=== PATIENT | female | born 1965 | race Caucasian/White ===

== ENCOUNTER 2018-09-07 19:54 | Emergency (ER) | payer BC ==
[~2018-09-07] VITALS: Ht 167.6 cm; Wt 77.1 kg
[2018-09-07 20:06] VITALS: BP_SYST 125
[2018-09-07 21:15] VITALS: BP_SYST 122
[2018-09-07 21:53] LABS: BILIRUBIN,URINE NEGATIVE (NEGATIVE); BLOOD, URINE NEGATIVE (NEGATIVE); CLARITY/URINE CLEAR (CLEAR); COLOR,URINE YELLOW (YELLOW); GLUCOSE,URINE NEGATIVE (NEGATIVE); KETONES,URINE NEGATIVE (NEGATIVE); LEUKOCYTE ESTERASE ,URINE TRACE (NEGATIVE); NITRITE, URINE NEGATIVE (NEGATIVE); PROTEIN URINE NEGATIVE (NEGATIVE); UROBILINOGEN,URINE 0.2 (0.2-1.0)
[2018-09-07 22:15] LABS: BACTERIA,URINE FEW /HPF (None Seen); MUCUS,URINE None Seen /LPF (None Seen); RBC,URINE 0-3 /HPF (0-3)
== END 2018-09-07 21:15 | disposition home or self-care (01) ==
LOC: SED 19:54
DX: N39.0 Urinary tract infection, site not specified (principal); R03.0 Elevated blood-pressure reading, without diagnosis of hypertension; Z88.1 Allergy status to other antibiotic agents
CPT/HCPCS: 81000-TC; 81025; 87086; 99283

== ENCOUNTER 2019-02-21 10:30 | Emergency (ER) | payer BC ==
[~2019-02-21] VITALS: Ht 167.6 cm; Wt 78.0 kg
[2019-02-21 11:07] VITALS: BP_SYST 134
--- NOTE | 2019-02-21 11:15 | NUR ---
Patient triaged and placed in waiting room. VSS and patient appears in no acute distress at this time. Accompanied by SELF, awaiting available bed, and MD notified of need for MSE.
--- NOTE | 2019-02-21 11:50 | NUR ---
Patient left without being seen.
== END 2019-02-21 11:50 | disposition left against medical advice (07) ==
LOC: SED 10:30
DX: R07.0 Pain in throat (principal); Z53.21 Procedure and treatment not carried out due to patient leaving prior to being seen by health care provider

== ENCOUNTER 2021-01-04 19:32 | Emergency (ER) | payer BC ==
[~2021-01-04] VITALS: Ht 170.2 cm; Wt 74.4 kg
[2021-01-04 19:36] VITALS: BP_SYST 124
--- NOTE | 2021-01-04 19:46 | NUR ---
Pt c/o cramping-shooting pain to left pelvic region that radiates to left groin that started at noon today. Pt states "I think I have a urinary tract infection." She has had 1 episode of UTI last year. Denies dysuria or hematuria, no N/V, afebrile.
--- NOTE | 2021-01-04 19:46 | NUR ---
Patient to ER bed 6 to gown for evaluation. Side rails up. Report given to ALEX Florence.
--- NOTE | 2021-01-04 20:00 | NUR ---
ER Dr. Jones at bedside examining patient.
[2021-01-04 20:05] LABS: BILIRUBIN,URINE NEGATIVE (NEGATIVE); BLOOD, URINE NEGATIVE (NEGATIVE); CLARITY/URINE CLEAR (CLEAR); COLOR,URINE YELLOW (YELLOW); GLUCOSE,URINE NEGATIVE (NEGATIVE); KETONES,URINE NEGATIVE (NEGATIVE); LEUKOCYTE ESTERASE ,URINE NEGATIVE (NEGATIVE); NITRITE, URINE NEGATIVE (NEGATIVE); PROTEIN URINE NEGATIVE (NEGATIVE); UROBILINOGEN,URINE 0.2 (0.2-1.0)
[2021-01-04] MEDS ORDERED: NAPR-1172 PO ×2 (20:14→20:24)
[2021-01-04 20:30] VITALS: BP_SYST 122
--- NOTE | 2021-01-04 20:30 | NUR ---
Patient given written and verbal discharge instructions and verbalizes understanding. ER MD discussed with patient the results and treatment provided. Patient in stable condition. ID arm band removed. Rx of Naproxen given. Patient educated on pain management and to follow up with PMD. Pain Scale 1/10. Opportunity for questions provided and answered. Medication side effect fact sheet provided.
== END 2021-01-04 20:30 | disposition home or self-care (01) ==
LOC: SED 19:32
DX: R10.2 Pelvic and perineal pain (principal); Z79.899 Other long term (current) drug therapy; Z88.1 Allergy status to other antibiotic agents; Z91.012 Allergy to eggs
CPT/HCPCS: 81003; 81025; 99283

== ENCOUNTER 2022-03-03 10:24 | Emergency (ER) | payer BC ==
[~2022-03-03] VITALS: Ht 167.6 cm; Wt 77.1 kg
[~2022-03-03 10:24] MED LIST: NAPR-1172 PO
[2022-03-03 10:34] VITALS: BP_SYST 130
--- NOTE | 2022-03-03 10:37 | NUR ---
Placed in room 08 . Placed on underground utility locator, blood pressure machine and pulse oximeter. To gown for exam. Side rails up.
--- NOTE | 2022-03-03 10:55 | NUR ---
PATIENT PLACED IN BED 8, AAOX4 SPEECH CLEAR AND COHERENT MOVE ALL EXTREMITIES, C/O RIGHT LOWER QUADRANT PAIN INTERMITENTELY. DENIES NAUSEA/VOMITING/DIARHEA.
[2022-03-03 11:21] LABS: BILIRUBIN,URINE NEGATIVE (NEGATIVE); BLOOD, URINE NEGATIVE (NEGATIVE); CLARITY/URINE CLEAR (CLEAR); COLOR,URINE YELLOW (YELLOW); GLUCOSE,URINE NEGATIVE (NEGATIVE); KETONES,URINE NEGATIVE (NEGATIVE); LEUKOCYTE ESTERASE ,URINE NEGATIVE (NEGATIVE); NITRITE, URINE NEGATIVE (NEGATIVE); PH,URINE 5.5 (5.0-8.0); PROTEIN URINE NEGATIVE (NEGATIVE); UROBILINOGEN,URINE 0.2 (0.2-1.0)
--- NOTE | 2022-03-03 11:38 | NUR ---
EDP AT BEDSIDE FOR INITIAL ASSESSMENT, AWAITING FOR ORDER .
--- NOTE | 2022-03-03 12:07 | NUR ---
PATIENT AMBULATORY TO THE BATHROOM.
[2022-03-03 12:47] LABS: BASOPHILS % (AUTO) 0.6 % (0.0-2.0); EOSINOPHILS # (AUTO) 0.1 K/uL (0.0-0.4); EOSINOPHILS % (AUTO) 1.8 % (0.0-4.0); HEMATOCRIT 46.8 % (36-48); HEMOGLOBIN 15.9 g/dL (12.0-16.0); LYMPHOCYTES # (AUTO) 1.3 K/uL (1.0-5.5); LYMPHOCYTES % (AUTO) 23.3 % (20.5-51.5); MEAN CORPUSCULAR HEMOGLOBIN 31 pg (27-31); MEAN CORPUSCULAR HGB CONC 34 % (32-36); MEAN CORPUSCULAR VOLUME 92 fL (79.0-98.0); MONOCYTES # (AUTO) 0.5 K/uL (0.0-1.0); MONOCYTES % (AUTO) 9.6 % (1.7-9.3); NEUTROPHILS # (AUTO) 3.5 K/uL (1.8-7.7); NEUTROPHILS % (AUTO) 64.7 % (40.0-70.0); PLATELET COUNT (AUTO) 196 K/uL (130-430); RED BLOOD CELL COUNT(AUTO) 5.12 MIL/uL (4.2-6.2); RED CELL DISTRIBUTION WIDTH 12.7 % (9.0-15.0); WHITE BLOOD COUNT (AUTO) 5.4 K/uL (4.8-10.8)
[2022-03-03 13:08] LABS: CALCIUM 9.2 mg/dL (8.4-11.0); CREATININE 0.89 mg/dL (0.55-1.30)
[2022-03-03 13:12] LABS: ALBUMIN 3.8 g/dL (3.4-4.8); TOTAL BILIRUBIN 0.6 mg/dL (0.0-1.0)
--- NOTE | 2022-03-03 15:09 | NUR ---
ALL RESULT BACK EDP REASSESS PATIENT AND D/C HOME WITH INSTRUCTION.
--- NOTE | 2022-03-03 15:15 | NUR ---
Patient given written and verbal discharge instructions and verbalizes understanding. ER MD discussed with patient the results and treatment provided. Patient in stable condition. ID arm band removed. IV catheter removed intact and dressing applied, no active bleeding. Rx of given. Patient educated on pain management and to follow up with PMD. Pain Scale . Opportunity for questions provided and answered. Medication side effect fact sheet provided.
== END 2022-03-03 15:16 | disposition home or self-care (01) ==
LOC: SED 10:24
DX: R10.31 Right lower quadrant pain (principal); Z91.012 Allergy to eggs; Z88.1 Allergy status to other antibiotic agents; Z88.8 Allergy status to other drugs, medicaments and biological substances; Z79.899 Other long term (current) drug therapy
CPT/HCPCS: 36415; 76376; 80053; 81003; 85025; 99284

== ENCOUNTER 2022-07-03 06:15 | Emergency (ER) | payer BC ==
[~2022-07-03] VITALS: Ht 167.6 cm; Wt 75.7 kg
[2022-07-03 06:28] VITALS: BP_SYST 135
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
--- NOTE | 2022-07-03 06:38 | NUR ---
Placed in room 03 . Placed on clinical research monitor, blood pressure machine and pulse oximeter. To gown for exam. Side rails up. Report given to ALEX BELL.
--- NOTE | 2022-07-03 06:41 | NUR ---
edp at bedside for initial assessment.
[2022-07-03] MEDS ORDERED: VIS25 PO (06:57)
--- NOTE | 2022-07-03 06:57 | NUR ---
call placed to pharmacy, awaiting for med.
--- NOTE | 2022-07-03 07:14 | NUR ---
RECEIVED REPORT FROM RAY JOHNSON TO CONTINUE CARE OF PT. PT IS AWAKE, A/O X4 AND VERBALLY RESPONSIVE. NO ACUTE DISTRESS NOTED. BREATHING EVEN AND UNLABORED. PT SPEAKS CLEAR AND FULL SENTENCES. AT BEDSIDE. SAFETY MEASURES IN PLACE.
--- NOTE | 2022-07-03 07:23 | NUR ---
MD BHAKTA AT BEDSIDE SPEAKING TO PT
[2022-07-03 07:41] VITALS: BP_SYST 107
--- NOTE | 2022-07-03 07:41 | NUR ---
DISCHARGE INSTRUCTIONS REVIEWED WITH PT, PT VERBALIZED UNDERSTANDING AND DENIED ANY QUESTIIONS. PT AMBULATED FROM ED BED 3 TO EXIT WITH STEADY GAIT.
== END 2022-07-03 07:41 | disposition home or self-care (01) ==
LOC: SED 06:15
DX: R00.2 Palpitations (principal); Z88.1 Allergy status to other antibiotic agents; Z88.6 Allergy status to analgesic agent; Z88.8 Allergy status to other drugs, medicaments and biological substances; Z91.018 Allergy to other foods; Z79.899 Other long term (current) drug therapy
CPT/HCPCS: 93005; 99283

== ENCOUNTER 2023-09-11 04:31 | Emergency (ER) | payer BC ==
[~2023-09-11] VITALS: Ht 167.6 cm; Wt 70.3 kg
[~2023-09-11 04:31] MED LIST changes: +VIS25 PO
[2023-09-11 04:40] VITALS: BP_SYST 129; PULSE 82; RESP 18; TEMP 97.9; O2SAT 98
[2023-09-11 05:08] LABS: BASOPHILS % (AUTO) 0.8 % (0.0-2.0); EOSINOPHILS # (AUTO) 0.1 K/uL (0.0-0.4); EOSINOPHILS % (AUTO) 3.7 % (0.0-4.0); HEMATOCRIT 45.7 % (36-48); HEMOGLOBIN 15.4 g/dL (12.0-16.0); LYMPHOCYTES # (AUTO) 0.7 K/uL (1.0-5.5); LYMPHOCYTES % (AUTO) 24.5 % (20.5-51.5); MEAN CORPUSCULAR HEMOGLOBIN 30 pg (27-31); MEAN CORPUSCULAR HGB CONC 34 % (32-36); MEAN CORPUSCULAR VOLUME 90 fL (79.0-98.0); MONOCYTES # (AUTO) 0.5 K/uL (0.0-1.0); MONOCYTES % (AUTO) 17.9 % (1.7-9.3); NEUTROPHILS # (AUTO) 1.4 K/uL (1.8-7.7); NEUTROPHILS % (AUTO) 53.1 % (40.0-70.0); PLATELET COUNT (AUTO) 193 K/uL (130-430); RED BLOOD CELL COUNT(AUTO) 5.07 MIL/uL (4.2-6.2); RED CELL DISTRIBUTION WIDTH 12.3 % (9.0-15.0); WHITE BLOOD COUNT (AUTO) 2.7 K/uL (4.8-10.8)
[2023-09-11 05:26] LABS: ALBUMIN 3.4 g/dL (3.4-4.8); CALCIUM 8.6 mg/dL (8.4-11.0); CREATININE 0.97 mg/dL (0.55-1.30); POTASSIUM 4.2 mmol/L (3.5-5.1); TOTAL BILIRUBIN 0.4 mg/dL (0.0-1.0); TOTAL PROTEIN, SERUM 7.2 g/dL (6.4-8.3)
[2023-09-11 07:51] VITALS: BP_SYST 129; PULSE 63; RESP 18; TEMP 97; O2SAT 100
== END 2023-09-11 07:52 | disposition home or self-care (01) ==
LOC: SED 04:31
DX: R19.7 Diarrhea, unspecified (principal); R10.9 Unspecified abdominal pain; Z88.6 Allergy status to analgesic agent; Z88.1 Allergy status to other antibiotic agents; Z91.012 Allergy to eggs; Z88.5 Allergy status to narcotic agent; Z88.8 Allergy status to other drugs, medicaments and biological substances; Z79.899 Other long term (current) drug therapy
CPT/HCPCS: 99285; 74177; 80053; 83690; 85025; 87230; 89055; 36415; Q9967